=== PATIENT | female | born 2000 | race Caucasian/White ===

== ENCOUNTER → 2024-07-21 14:14 | Outpatient (CLI) | payer OTHER, SELFPAY ==
--- NOTE | 2024-07-21 14:16 | DI.US.S_ITS ---
PROCEDURE: US OB <= 14 WEEKS FETUS INDICATIONS: Dating and viability OUTSIDE/PRIOR DATING DATA: Last menstrual period (LMP): 05/09/2024. LMP-based estimated date of delivery (COURTNEY): 02/13/2025. First dating scan (date and location): 07/21/2024. Estimated date of delivery (COURTNEY) from first dating scan: 02/13/2025. TECHNIQUE: Real-time scanning was performed of the fetus and maternal pelvic organs, with image documentation. Endovaginal scanning was also performed to better visualize the fetus and maternal ovaries. COMPARISON: None. FINDINGS: [place]-rump length is 3.5 cm. Ultrasound age is 10 weeks and 3 days. Cervical length is 4 cm. Cardiac motion is seen at a rate of 180 beats per minute. IMPRESSION: Living intrauterine gestation at an ultrasound age of 10 weeks and 3 days. This is consistent with the reported LMP. Dictated by: Mikey Veliz M.D. on 07/21/2024 at 15:32 Approved by: Mikey Veliz M.D. on 07/21/2024 at 15:33
== END ==
LOC: US 14:16
PROVIDERS: Referring Provider Family Medicine; Visit Provider Family Medicine
DX: Z34.01 Encounter for supervision of normal first pregnancy, first trimester (principal); Z3A.10 10 weeks gestation of pregnancy
CPT/HCPCS: 76801

== ENCOUNTER → 2024-08-02 12:41 | Outpatient (CLI) | payer OTHER, SELFPAY ==
[2024-08-02 13:25] LABS: Add Manual Diff / Slide Review NO; Basophils Absolute Auto 0 /uL (0-100); Basophils Percent Auto 0.5 % (0-2); Eosinophils Absolute Auto 0 /uL (0-450); Eosinophils Percent Auto 0.4 % (2-4); Hematocrit 35.5 % (36-46); Hemoglobin 12.3 g/dL (12.0-16.0); Lymphocytes Absolute Auto 1600 /uL (1100-4500); Mean Corpuscular HGB Conc 34.7 % (30-36); Mean Corpuscular Volume 83.8 fL (80-100); Monocytes Absolute Auto 400 /uL (0-900); Monocytes Percent Auto 4.4 % (3-14); Neutrophils Absolute Auto 6600 /uL (1500-7000); Neutrophils Percent Auto 75.7 % (50-75); Platelet Count 262 X10^3/uL (150-400); Red Blood Cell Count 4.23 X10^6/uL (4.0-5.2); White Blood Cell Count 8.7 X10^3/uL (4.5-11.0)
[2024-08-02 13:28] LABS: Appearance Urine UA SL CLOUDY; Bilirubin Urine UA NEGATIVE (NEGATIVE); Color Urine UA YELLOW; Glucose Urine UA NEGATIVE (Negative); Ketones Urine UA NEGATIVE (NEGATIVE); Leukocyte Esterase Urine UA 1+ (NEGATIVE); Nitrite Urine UA POSITIVE (Negative); Occult Blood Urine UA NEGATIVE (Negative); Protein Urine UA NEGATIVE (Negative); Urobilinogen Urine UA 0.2 E.U./dL (0.2)
[2024-08-02 13:29] LABS: Urine Volume 10mL (spun)
[2024-08-02 13:31] LABS: Bacteria Urine Many (>30); RBC Urine None Seen (0-5/HPF); Squamous Epithelial Cell Urine 1-5 /HPF (0-5/HPF); WBC Urine 1-5/HPF (0-5/HPF)
[2024-08-02 13:41] LABS: Alanine Aminotransferase 39 IU/L (<35); Albumin Globulin Ratio 1.5 (1.0-2.8); Alkaline Phosphatase 46 U/L (38-126); Aspartate Aminotransferase 26 IU/L (14-36); BUN Creatinine Ratio 11.4 (6-22); Bilirubin Total 0.4 mg/dL (0.2-1.3); Blood Urea Nitrogen 4 mg/dL (7-17); Carbon Dioxide 19 mmol/L (22-32); Chloride 105 mmol/L (98-107); Estimated Glomerular Filt Rate > 60 mL/min (>60); Globulin 2.6 g/dL (1.7-4.1); Glucose 123 mg/dL (70-99); HEMOLYSIS < 15 (0-50); Potassium 3.8 mmol/L (3.4-5.1); Sodium 133 mmol/L (137-145); Total Protein 6.6 g/dL (6.3-8.2)
[2024-08-02 13:55] LABS: Natera Collection Specimen Collected
[2024-08-02 14:28] LABS: Creatinine Urine Random 46.33 mg/dL; Protein (Total) Urine Random 16 mg/dL (0-12); Protein Creatinine Ratio Urine 0.34 GRAM/24H
[2024-08-03 04:40] LABS: RPR Screen Non Reactive (Non Reactive)
[2024-08-03 08:36] LABS: Varicella IgG Antibody Reactive (Non Reactive)
[2024-08-04 19:45] LABS: HIV 1 & 2 Ab/Ag 4th Gen Combo NEGATIVE (NEGATIVE); Hep C Virus Ab w/Reflex Quant NEGATIVE s/c (NEGATIVE); Hepatitis B Surface Antigen NEGATIVE s/c (NEGATIVE)
[2024-08-04 19:46] LABS: Rubella Antibody IgG 6.4 IU/mL (>15)
== END ==
PROVIDERS: Referring Provider Family Medicine; Visit Provider Family Medicine
DX: Z34.02 Encounter for supervision of normal first pregnancy, second trimester (principal)
CPT/HCPCS: 36415; 80053; 80055; 81003; 81015; 82570; 84156; 86787; 86803; 86850; 86900; 86901; 87077; 87086; 87186; 87389

== ENCOUNTER → 2024-10-04 13:12 | Outpatient (CLI) | payer OTHER, SELFPAY ==
--- NOTE | 2024-10-04 13:13 | DI.US.S_ITS ---
PROCEDURE: US OB >= 14 WEEKS FETUS INDICATIONS: anatomy scan OUTSIDE/PRIOR DATING DATA: Last menstrual period (LMP): 05/09/2024. LMP-based estimated date of delivery (COURTNEY): 02/13/2025. First dating scan (date and location): 07/21/2024. Estimated date of delivery (COURTNEY) from first dating scan: 02/13/2025. TECHNIQUE: Real-time scanning was performed of the fetus, with image documentation and biometric measurements. Endovaginal scanning: COMPARISON: 07/21/2024. FINDINGS: General: A single living intrauterine gestation is present. Presentation: Variable. Placenta: Placental position is posterior , without previa. Amniotic fluid index: 18.9 cm, normal range is 5-24 cm. Single deepest vertical pocket is 5.1 cm. heart rate: 145 beats per minute. Maternal cervical canal: 4.6 cm long. Normal lower limit is 2.5 cm. biometrics: Biparietal diameter: 5.2 cm Head circumference: 18.8 cm Abdominal circumference: 17.6 cm Femur length: 3.7 cm Clinically estimated gestational age: 21 weeks 1 day Composite gestational age from present scan: 21 weeks 6 days Estimated weight and percentile: 90th Anatomic survey: Neuro: Ventricles are non-dilated at less than 10 mm. Cisterna magna is normal at 3-11 mm. Cerebellum is normal in size and morphology. Nuchal skin fold: Normal at less than 6 mm between 14-21 weeks gestational age. Face: Nose and lips, facial profile are normal. Spine: No evidence for spina bifida. Heart: 4-chambered heart is present, with normal ventricular outflow tracts. Diaphragm: Diaphragm is intact. Stomach: Left-sided stomach is present. Kidneys: No hydronephrosis. Normal is less than 5 mm in 2nd trimester, less than 7 mm in 3rd trimester. Cord: 3-vessel cord has orthotopic insertion. Bladder: Normal in size. Extremities: All 4 extremities identified. RVOT and profile not well seen secondary to positioning. IMPRESSION: Single live intrauterine corresponds with an estimated gestational age of 21 weeks and 6 days. We strive to produce accurate, complete, and clear reports of imaging services. To assist us in improving patient care, this report was composed using standard report templates and voice recognition software. Therefore, it may contain abnormal punctuation, insertions and/or omissions. Occasional wrong-word or sound-alike substitutions may occur. Though we review the report and make efforts to correct it, we do recommend that the report be read carefully in proper context to recognize any text inaccuracies. Dictated by: Christine Harris M.D. on 10/04/2024 at 15:08 Approved by: Christine Harris M.D. on 10/04/2024 at 15:16
== END ==
LOC: US 13:13
PROVIDERS: Referring Provider Family Medicine; Visit Provider Family Medicine
DX: Z34.02 Encounter for supervision of normal first pregnancy, second trimester (principal); Z3A.21 21 weeks gestation of pregnancy
CPT/HCPCS: 76811

== ENCOUNTER → 2024-10-12 15:44 | Outpatient (CLI) | payer OTHER, SELFPAY ==
--- NOTE | 2024-10-12 15:45 | DI.US.S_ITS ---
PROCEDURE: US OB FOLLOW UP INDICATIONS: RIGHT VENTRICULAR OUTFLOW TRACT AND PROFILE OUTSIDE/PRIOR DATING DATA: Last menstrual period (LMP): 05/09/2024. LMP-based estimated date of delivery (COURTNEY): 02/13/2025. First dating scan (date and location): 07/21/2024. Estimated date of delivery (COURTNEY) from first dating scan: 02/13/2025. The calculations are made using the ultrasound COURTNEY of 02/13/2025. TECHNIQUE: Real-time scanning was performed of the fetus, with image documentation. Endovaginal scanning: Not performed COMPARISON: [facility], OB >= 14 WEEKS FETUS, 10/04/2024, 13:27. [facility], OB <= 14 WEEKS FETUS, 07/21/2024, 14:31. FINDINGS: A single living intrauterine gestation is present. Presentation: Vertex. Placenta: Placental position is posterior, without previa. Amniotic fluid index: 18.5 cm, normal range is 5-24 cm. Single deepest vertical pocket is 6.6 cm. heart rate: 149 beats per minute. Maternal cervical canal: 5.6 cm long. Normal lower limit is 2.5 cm. Clinically estimated gestational age: 22 weeks 2 days facial profile, 4 chamber heart view, and cardiac outflow tracks are normal in appearance. IMPRESSION: 1. [place] living intrauterine at 22 weeks 2 days based on prior dating. 2. Normal placenta and amniotic fluid. 3. facial profile and cardiac outflow tracks are normal appearance. Completes anatomic survey. Dictated by: Karri Sandoval M.D. on 10/13/2024 at 9:42 Approved by: Karri Sandoval M.D. on 10/13/2024 at 9:46
== END ==
PROVIDERS: Referring Provider Family Medicine; Visit Provider Family Medicine
DX: Z34.02 Encounter for supervision of normal first pregnancy, second trimester (principal); Z3A.22 22 weeks gestation of pregnancy
CPT/HCPCS: 76816

== ENCOUNTER → 2025-01-21 15:57 | Outpatient (CLI) | payer OTHER, SELFPAY ==
[2025-01-22 11:18] LABS: Strep Grp B PCR NEG for Grp B Strep
== END ==
LOC: LAB 15:58
PROVIDERS: Visit Provider Family Medicine
DX: Z36.85 Encounter for antenatal screening for Streptococcus B (principal)
CPT/HCPCS: 87653

== ENCOUNTER 2025-02-03 10:28 | Outpatient (CLI) | payer OTHER, SELFPAY ==
--- NOTE | 2025-02-03 11:45 | P.TNLD_ITS ---
Visit Information Visit Information Date of evaluation: 02/03/25 Primary OB Provider: Liliana Solo [facility] Surgical History (Updated 06/24/24 @ 15:31 by Evelia Middleton RN) [place] teeth extracted Family History (Updated 06/24/24 @ 16:21 by Evelia Middleton RN) Grandmother Diabetes mellitus Mother Domestic violence Social History marital status: unmarried,living together number of children: 0 household members: significant other lives independently: Yes caregiver/support person: No housing: apartment pets and animals: No education level: high school occupational status: employed (Active duty [employer]) current occupational exposures/hazards: No special shawn needs: No travel history: recent ([place]) seatbelt use: always water heater temp set < 120 deg: Yes working smoke detector in home: Yes fire extinguisher in home: Yes carbon monox detector in home: Yes firearms in home: No do you feel safe at home: Yes Tobacco: How many years used: 1 alcohol intake: former (~3/week when not or trying) substance use type: does not use during the past year weight has: remained stable well-balanced diet: daily or most days daily servings fruits/ve-4 caffeine: Yes (single cup coffee in AM) Type(s) of exercise: walking additional social history: Patient is planning to be soon, but until then encouraged her to fill out a [facility]CP[facility] JENA. Her LNOK is her father, who is currently incarcerated for the murder of her mother and she absolutely would not want him in any way involved in her care. Prefers grandmother Zeinab as secondary contact, she was added to emergency contacts.
== END 2025-02-03 11:32 | disposition home or self-care (01) ==
LOC: LABOR 11:18 → OB 12:35
PROVIDERS: Referring Provider Family Medicine; Visit Provider Family Medicine
DX: O47.1 False labor at or after 37 completed weeks of gestation (principal); Z3A.38 38 weeks gestation of pregnancy
CPT/HCPCS: 59025; G0378; G0379

== ENCOUNTER 2025-02-03 21:21 | Inpatient (IN) | payer OTHER, SELFPAY ==
[2025-02-03 22:19] LABS: Add Manual Diff / Slide Review NO; Hematocrit 30.6 % (36-46); Hemoglobin 9.9 g/dL (12.0-16.0); Lymphocytes Absolute Auto 2100 /uL (1100-4500); Mean Corpuscular HGB Conc 32.5 % (30-36); Mean Corpuscular Hemoglobin 23.9 PG (26-34); Mean Corpuscular Volume 73.6 fL (80-100); Platelet Count 344 X10^3/uL (150-400)
[2025-02-03 22:34] LABS: Alanine Aminotransferase 20 IU/L (<35); Albumin 4.0 g/dL (3.5-5.0); Albumin Globulin Ratio 1.1 (1.0-2.8); Blood Urea Nitrogen 4 mg/dL (7-17); Calcium 9.1 mg/dL (8.4-10.2); Carbon Dioxide 17 mmol/L (22-32); Chloride 106 mmol/L (98-107); Estimated Glomerular Filt Rate > 60 mL/min (>60); Globulin 3.5 g/dL (1.7-4.1); Glucose 89 mg/dL (70-99); Sodium 134 mmol/L (137-145); Total Protein 7.5 g/dL (6.3-8.2)
[2025-02-03 22:37] LABS: Alkaline Phosphatase 138 U/L (38-126); HEMOLYSIS 102 (0-50); Potassium 4.4 mmol/L (3.4-5.1)
[2025-02-04] MEDS: LACTATED RINGERS 1,000 ML 100 ML IV (01:30)
[2025-02-04] MEDS: OXYTOCIN PREMIX 30 UNIT/500 ML PLAST..BAG 200 UNIT IV (01:32)
[2025-02-04] MEDS: TRANEXAMIC ACID 1,000 MG in SODIUM CHLORIDE 0.9% 100 ML 600 MG IV (01:35)
--- NOTE | 2025-02-04 02:21 | PM.OBHP.IH.1 ---
OB HPI Date/Time Date of admission: 02/03/25 Date Patient Seen: 02/04/25 Time Patient Seen: 00:50 History of Present Condition Chief complaint: contractions COURTNEY Calculator Estimated Delivery Date Method Current WG Current Estimate 02/13/25 LMP (Certain) 38w 5d Estimated Gestational Age (weeks): 38w5d : 1 care: good care Dating criteria OB: LMP confirmed by 1st trimester US Ultrasounds: normal 1st trimester US and normal mid trimester US Obstetrical complications: none Medical complications OB: none Preadmission Labs Last OB Lab Results: Blood Type A Positive 02/03/25, 22:03 Antibody Screen Negative 02/03/25, 22:03 Hct, (36-46) 30.6 % L 02/03/25, 22:03 Hgb, (12.0-16.0) 9.9 g/dL L 02/03/25, 22:03 Hep Bs Antigen, (NEGATIVE) Negative s/c 08/02/24, 12:52 Hepatitis C Antibody, (NEGATIVE) Negative s/c 08/02/24, 12:52 Rubella Antibody, (>15) 6.4 IU/mL L 08/02/24, 12:52 VZV IgG Antibody, (Non Reactive) Reactive 08/02/24, 12:52 Glucose 1 Hr 50 gm, (76-139) 123 mg/dL 11/16/24, 10:45 Group B Strep (PCR) Neg for grp b strep 01/21/25, 15:57 Glucose Tolerance Testin hr (123) Genetic Screens: Cell-free DNA: Normal Evaluation Evaluation Baseline heart rate: 120 Variability: Moderate (6-25) monitor accelerations: Present Monitor Decelerations: Absent Contraction Frequency (minutes): 2 Category of Tracing: Reactive Status: Category l Dilation (cm): 5.5 Effacement (%): 90 Dilation: >/=5 cm Effacement: >/=80% station: -2 Position of cervix: anterior Consistency: soft Magana score: 11 PFSH Surgical History (Updated 06/24/24 @ 15:31 by Evelia Middleton RN) [place] teeth extracted Family History (Updated 06/24/24 @ 16:21 by Evelia Middleton RN) Grandmother Diabetes mellitus Mother Domestic violence Social History marital status: unmarried,living together number of children: 0 household members: significant other lives independently: Yes caregiver/support person: No housing: apartment pets and animals: No education level: high school occupational status: employed (Active duty [employer]) current occupational exposures/hazards: No special shawn needs: No travel history: recent ([place]) seatbelt use: always water heater temp set < 120 deg: Yes working smoke detector in home: Yes fire extinguisher in home: Yes carbon monox detector in home: Yes firearms in home: No do you feel safe at home: Yes Tobacco: How many years used: 1 alcohol intake: former (~3/week when not or trying) substance use type: does not use during the past year weight has: remained stable well-balanced diet: daily or most days daily servings fruits/ve-4 caffeine: Yes (single cup coffee in AM) Type(s) of exercise: walking additional social history: Patient is planning to be soon, but until then encouraged her to fill out a [facility]. Her LNOK is her father, who is currently incarcerated for the murder of her mother and she absolutely would not want him in any way involved in her care. Prefers grandmother Zeinab as secondary contact, she was added to emergency contacts. Meds Home Medications and Allergies Home Medications ?Medication ?Instructions ?Recorded ?Confirmed ?Type vitamin-ferrous sulfate tab PO 06/24/24 01/28/25 History 27 mg iron-folic acid 0.8 mg tablet ondansetron 4 mg disintegrating 4 mg PO Q8H PRN nausea and 08/30/24 01/28/25 Rx tablet vomiting #30 tabs RSVPreF3 antigen-AS01E 0.5 ml IM ONCE #1 ea 01/07/25 01/28/25 Rx adjuvant(PF) 120 mcg/0.5 mL IM suspension, kit Allergies Allergy/AdvReac Type Severity Reaction Status Date / Time No Known Drug Allergies Allergy Verified 02/03/25 22:52 Review of Systems Review of Systems Narrative: + regular contractions - LOF + movement - vaginal bleeding OB Exam Narrative Exam Narrative: GEN: uncomfortable appearing, breathing through contractions Pulm: breathing comfortably on RA ABd: gravid MSK: laying in bed, moving all extremities neuro: non-focal Objective Labs 02/03/25 22:03 02/03/25 22:03 Labs: Laboratory Results - last 24 hr 02/03/25 22:03 WBC 13.7 H RBC 4.16 Hgb 9.9 L Hct 30.6 L MCV 73.6 L MCH 23.9 L MCHC 32.5 RDW 16.1 H Plt Count 344 Neut % (Auto) 79.1 H Lymph % (Auto) 15.1 L [place] % (Auto) 5.1 Eos % (Auto) 0.1 L Baso % (Auto) 0.6 Neut # (Auto) 94164 H Lymph # (Auto) 2100 [place] # (Auto) 700 Eos # (Auto) 0 Baso # (Auto) 100 Sodium 134 L Potassium 4.4 Chloride 106 Carbon Dioxide 17 L BUN 4 L Creatinine 0.43 L Estimated GFR > 60 BUN/Creatinine Ratio 9.3 Glucose 89 Calcium 9.1 Total Bilirubin 0.6 AST 30 ALT 20 Alkaline Phosphatase 138 H Total Protein 7.5 Albumin 4.0 Globulin 3.5 Albumin/Globulin Ratio 1.1 Blood Type A Positive Antibody Screen Negative Assessment and Plan Assessment and Plan Assessment and Plan narrative: 24 yo G1 presenting at 38w5d with BETH. She is pepe painfully and making cervical change. uncomplicated. # SIUP at term: - admit to LD - continuous monitoring - Anesthesia consult - CBC, TS - GBS negative ##rubella Nonimmune - PP MMR Time-Based Coding :: [TOTAL MINUTES] spent with patient and on the chart (including review of chart, obtaining history, exam, reviewing outside data, placing orders, documenting exam and treatment plan, and counseling patient) on [DATE].
--- NOTE | 2025-02-04 02:31 | PM.OBPRVD ---
Labor & Delivery Delivery date: 02/04/25 Delivery Time: 01:27 Intrapartal Events: None Cervical ripening method: none Induction method: none Delivery augmentation: rupture of membranes (SROM with clear fluid 00:54) Delivery monitor: external FHT Route of delivery: L&D Laceration Description: Labial (R side periclitoral through clitoral bolton) Delivery repair: vicryl (3-0) Estimated blood loss (mL): 600 Quantitative Blood Loss: 674 Anesthesia Type: None Narrative: PROCEDURE: 24 yo G1 at 38w5d presented with BETH and was admitted to Labor and Delivery. She was managed expectantly. The patient progressed through the 1st stage. ROM occured at 00:54 with clear fluid. No pain control was utilized. The patient progressed through the 2nd stage and delivered a viable male infant with APGARs 9/9 at 01:27 via VICKI with a nucal arm. The cord was cut and clamped after a 60 second delay. The placenta delivered with gentle cord traction, and appeared complete. The perineum and vagina were inspected with a R labial laceration into periclitoral lac and into the clitoral bolton. This was repaired in a contiguous fashion. Needle and sponge counts were correct.? The vagina was inspected and no items were left in situ. Mom is doing well with Lai, her and Dad at bedside. PREPROCEDURE DIAGNOSIS: Intrauterine at 38w5d GBS negative RH positive POSTPROCEDURE DIAGNOSIS: Intrauterine at 38w5d, delivered Same as pre-procedure hemorrhage Baby Lai: Infant gender: Male Presentation: vertex Position: Left Occiput Anterior Placenta delivery description: Spontaneous Cord Vessel Description: 3 Vessels score (1 min): 9 score (5 min): 9 Plan for aftercare: Routine care
[2025-02-04] MEDS: ACETAMINOPHEN 325 MG TABLET 650 MG PO ×4 (03:11→22:53)
[2025-02-04 06:13] LABS: Add Manual Diff / Slide Review NO; Hematocrit 27.1 % (36-46); Hemoglobin 8.8 g/dL (12.0-16.0); Lymphocytes Absolute Auto 1300 /uL (1100-4500); Mean Corpuscular HGB Conc 32.4 % (30-36); Mean Corpuscular Hemoglobin 23.9 PG (26-34); Mean Corpuscular Volume 73.8 fL (80-100); Platelet Count 284 X10^3/uL (150-400)
[2025-02-04 08:10] VITALS: TEMP 36.6
[2025-02-04] MEDS: IBUPROFEN 600 MG TABLET PO ×3 (08:10→21:20)
[2025-02-04] MEDS: PRENATAL VIT,CALC/IRON/FOLIC 1 TABLET 1 TAB PO (11:34)
[2025-02-04] MEDS: DOCUSATE 100 MG CAPSULE PO (11:34)
[2025-02-04] MEDS: IRON SUCROSE 300 MG in SODIUM CHLORIDE 0.9% 250 ML 176.667 MG IV (12:59)
[2025-02-04] MEDS: DERMOPLAST SPRAY 20% 60 ML 1 SPRAY TOP (23:05)
[2025-02-05] MEDS: IBUPROFEN 600 MG TABLET PO ×2 (03:25→09:16)
[2025-02-05] MEDS: ACETAMINOPHEN 325 MG TABLET 650 MG PO ×2 (04:47→12:33)
[2025-02-05 07:30] VITALS: BP 105/75; PULSE 76; RESP 15; TEMP 36.3
[2025-02-05] MEDS: DOCUSATE 100 MG CAPSULE PO (09:16)
[2025-02-05] MEDS: PRENATAL VIT,CALC/IRON/FOLIC 1 TABLET 1 TAB PO (09:16)
--- NOTE | 2025-02-05 09:36 | P.DS_ITS ---
Discharge Providers Provider Date of admission: 02/03/25 21:21 Discharge Date: 02/05/25 Primary care physician: Mehnaz DOSHI Provider Consults: 02/03/25 21:50 Consult to Anesthesiology Urgent Comment: Consulting Provider: Anesthesiologist Reason for consultation: Epidural Has provider been notified: No 02/04/25 02:51 Consult to Material Handling Technician Routine Comment: Discharge provider: Liliana Solo MD Summary Hospital Course Date Patient Seen: 02/05/25 Time Patient Seen: 09:36 Hospital Course: 24 yo G1 at 38w5d presented with BETH and was admitted to Labor and Delivery. She was managed expectantly. The patient progressed through the 1st stage. ROM occured at 00:54 with clear fluid. No pain control was utilized. The patient progressed through the 2nd stage and delivered a viable male infant with APGARs 9/9 at 01:27 via VICKI with a nucal arm. The cord was cut and clamped after a 60 second delay. The placenta delivered with gentle cord traction, and appeared complete. The perineum and vagina were inspected with a R labial laceration into periclitoral lac and into the clitoral bolton. This was repaired in a contiguous fashion. She was given 1gTXA and 800mcg Cytotec rectally for PPH. total QBL 1035mL immediately . bleeding has since slowed. hgb dropped to 8.8 within 6 hours of delivery. She received an iron infusion without difficulty. No anemia sx this AM. She is well. She is noting some nipple discomfort but has met with lactatoin and has started using a nipple shield. Peripartum Data Infant Delivery Method: Natural Vaginal Laceration Description: Labial (clitoral laceration ) Ann[place]an Lai: Gender: Male Disposition of : home Time Spent with Patient Time attestation: Total time spent providing and/or coordinating discharge services: Time spent: Less than 30 minutes Objective Labs 02/04/25 06:00 02/03/25 22:03 Exam Narrative Exam Narrative: Gen: well appearing, NAD Skin: no rashes or pallor Abd: appropriate post-op tenderness, fundus firm below Umbilicus. MSK: scant edema Discharge Plan Discharge Plan Patient Disposition: Home Discharge orders & Medications Prescriptions: Continued RSVPreF3 antigen-AS01E (PF) 120 mcg/0.5 mL suspension for reconstitution 0.5 ml IM ONCE Qty: 1 0RF ondansetron 4 mg tablet,disintegrating 4 mg PO Q8H PRN (Reason: nausea and vomiting) Qty: 30 1RF vit-ferrous sulfat-FA 27 mg iron- 0.8 mg tablet PO Follow up/Referrals: ProviderMehnaz [Primary Care Provider, Family Practice] Liliana Solo MD [Physician, Family Practice] - 03/24/25 2:45 pm Referral Note: please arrive 15 minutes prior to your scheduled appointment time for check in. Visit Report/Discharge Packet Stand Alone Forms: Patient Portal/API, Stroke Signs & Symptoms Discharge Data Primary Care Provider: Mehnaz Santiago
[2025-02-05] MEDS: MEASLES,MUMPS,RUBELLA VACC/PF 0.5 ML VIAL SUBCUT (12:34)
== END 2025-02-05 15:10 | disposition home or self-care (01) | DRG 768 ==
PROVIDERS: Family Medicine; Admitting Provider Family Medicine; Referring Provider Family Medicine; Visit Provider Family Medicine
DX: O72.1 Other immediate postpartum hemorrhage (principal); Z37.0 Single live birth; O70.0 First degree perineal laceration during delivery; Z67.10 Type A blood, Rh positive; Z3A.38 38 weeks gestation of pregnancy; Z28.39 Other underimmunization status
CPT/HCPCS: 36415; 59025; 59050; 59200; 80053; 85025; 86850; 86900; 86901; G0379; J1756; J2590; J7050; J7120; S0191